=== PATIENT | female | born 1980 | race Caucasian/White ===

== ENCOUNTER 2019-01-26 14:11 | Emergency (ER) | payer OTHER ==
[~2019-01-26] VITALS: Ht 152.4 cm; Wt 95.1 kg
[~2019-01-26 14:11] MED LIST: BCP PO; CIPR500T89 PO; OMEP40CA2 PO; VICO5TAB PO
[2019-01-26] MEDS ORDERED: PROHANCE 279.3MG/ML 15ML VIAL (A9576) As Ordered ONE (20:36)
[2019-01-26] MEDS ORDERED: PROHANCE 279.3MG/ML 5ML VIAL (A9576) As Ordered ONE (20:36)
--- NOTE | 2019-01-26 22:44 | REPVR ---
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 Contrast material: PROHANCE; Contrast volume: 19 ml; Contrast route: IV HAND INJECTION; COMPARISON: No relevant prior studies available. FINDINGS: Brain: After injection of contrast there is no evidence of abnormal enhancement. Ventricles: Normal appearing ventricles. Bones/joints: Unremarkable. Soft tissues: Normal. Sinuses: Clear paranasal sinuses. Mastoid air cells: The mastoid air cells appear pneumatized. Orbits: The optic nerves appear symmetric and there is no evidence of abnormal bright signal intensity on T2 weighting. There is no evidence of abnormal bright signal intensity of brain on the FLAIR sequence. Sella: There is increase in the CSF space about the pituitary gland consistent with empty sella variant. Other vasculature: The vessels of the [place] have a normal signal void. IMPRESSION: 1. No evidence of mass effect. No evidence of abnormal signal intensity. 2. Increase in the CSF space about the pituitary gland consistent with empty sella variant. Electronically signed by: Kwan Dillon On 01/26/2019 22:44:51 PM
--- NOTE | 2019-01-26 22:51 | REPVR ---
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 Contrast material: PROHANCE; Contrast volume: 19 ml; Contrast route: IV HAND INJECTION; COMPARISON: No relevant prior studies available. FINDINGS: Orbits: On the thin section images through the orbits the optic nerves appear symmetric. After injection of contrast there is no evidence of abnormal enhancement right or left optic nerve. The orbits appear symmetric. There is normal enhancement of the rectus muscles. Sinuses: Unremarkable. No air-fluid levels. Vasculature: The vessels of the [place] have normal signal void. Bones/joints: There is no evidence of abnormal bright signal intensity within the optic nerves on the T2 sequence. There is increase in the CSF space about the pituitary gland consistent with empty sella variant. Soft tissues: The optic chiasm appears normal in size with no evidence of abnormal enhancement. IMPRESSION: Normal appearing MRI scan of the orbits. Increased CSF space about the pituitary gland consistent with empty sella variant. Electronically signed by: Kwan Dillon On 01/26/2019 22:50:54 PM
--- NOTE | 2019-01-26 23:01 | REPVR ---
EXAM: MR Angiogram Head Without Contrast, Venogram EXAM DATE/TIME: 01/26/2019 9:42 PM CLINICAL HISTORY: 38 years old, female; Signs and symptoms; Headache and visual disturbance; Other visual defect; Patient HX: PT stated bilat eyes off focus, goddard's (lt-side [facility] area since 08/29/18), evaluate optical nerve per doctor PT was given contrast 19 ml prohance through iv hand injection; Additional info: Please do mrv TECHNIQUE: Imaging protocol: MR angiogram of the head without contrast. Exam focused on the veins. 3D rendering: MIP reconstructed images were created and reviewed. COMPARISON: No relevant prior studies available. FINDINGS: There is venous return through the venous sinuses with no evidence of thrombosis. No definite abnormal vessel can be seen on this study. This study was primarily for the venous phase/MR venogram. IMPRESSION: Normal appearing MR venogram. Electronically signed by: Kwan Dillon On 01/26/2019 23:01:26 PM
[2019-01-27 03:23] VITALS: BP 120/70
== END 2019-01-27 03:25 | disposition short-term general hospital (02) ==
LOC: M ED 14:11
DX: H53.8 Other visual disturbances (principal); H47.10 Unspecified papilledema; Z91.09 Other allergy status, other than to drugs and biological substances
CPT/HCPCS: 70543; 70544; 70553; 84702; 99284; A9576